=== PATIENT | female | born 1945 | race Caucasian/White ===

== ENCOUNTER 2019-10-19 07:12 | Day surgery (SDC) | payer MEDICARE, OTHER ==
[~2019-10-19] VITALS: Ht 167.6 cm; Wt 65.1 kg
[2019-10-19] MEDS ORDERED: albumin 25% 100mL bottle x 1 IV PRN (07:40)
[2019-10-19] MEDS ORDERED: normal saline 1000ml 1,000 ML IV PRN (07:45)
[2019-10-19 07:53] VITALS: BP 143/71
[2019-10-19] MEDS ORDERED: LACT1CAP65 PO (08:06)
[2019-10-19] MEDS ORDERED: PROC-8 PO (08:06)
[2019-10-19] MEDS ORDERED: OMEP40CA13 PO (08:06)
[2019-10-19] MEDS ORDERED: LETR2.5T23 PO (08:06)
[2019-10-19] MEDS ORDERED: CA C1TAB70 PO (08:06)
[2019-10-19 10:30] VITALS: BP 137/74
[2019-10-19 10:43] LABS: GLUCOSE,BODY FLUID 92 MG/DL; LDH,BODY FLUID 184 U/L
[2019-10-19 11:29] LABS: LYMPHOCYTES,BODY FLUID 54 %; MONOCYTES,BODY FLUID 22 %; NEUTROPHILS,BODY FLUID 24 %
[2019-10-19 11:33] LABS: BF RBC COUNT 2075 /CU MM; BF WBC COUNT 1075 /CU MM (0-1000); BFAPPEAR CLOUDY; BFCOLOR YELLOW; BFVOLUME 60 ML
[2019-10-19 11:34] LABS: BF MESOTHELIAL CELLS MODERATE
== END 2019-10-19 10:15 | disposition home or self-care (01) ==
LOC: SSTAY O 07:12
PROVIDERS: ATTEND Radiology Diagnostic Radiology
DX: R18.8 Other ascites (principal); C50.919 Malignant neoplasm of unspecified site of unspecified female breast; Z79.899 Other long term (current) drug therapy; Z88.2 Allergy status to sulfonamides
CPT/HCPCS: 49083; 82945; 83615; 84157; 89051; C1729; J7030

== ENCOUNTER 2019-11-16 07:22 | Day surgery (SDC) | payer MEDICARE, OTHER ==
[2019-11-16] VITALS (10 sets, daily range): BP systolic 120–164; BP diastolic 56–72
[~2019-11-16] VITALS: Ht 167.6 cm; Wt 57.8 kg
[~2019-11-16 07:22] MED LIST: CA C1TAB70 PO; LACT1CAP65 PO; LETR2.5T23 PO; OMEP40CA13 PO; PROC-8 PO
[2019-11-16] MEDS ORDERED: normal saline 1000ml 1,000 ML IV SCH (07:50)
[2019-11-16] MEDS ORDERED: heparin sodium, porcine/PF 100unit/ml 5ML syringe ICATH ONE (08:05)
[2019-11-16] MEDS ORDERED: LIDOcaine 1% (10mg/ml) 2ml vial SQ ONE (08:05)
[2019-11-16] MEDS ORDERED: midazolam 2 mg/2 ml injection IV PRN (08:05)
[2019-11-16] MEDS ORDERED: fentaNYL/PF 50MCG/1 ML 2ML syringe IV PRN (08:05)
[2019-11-16] MEDS ORDERED: OMEP20TA5 PO (08:09)
[2019-11-16] MEDS ORDERED: PSYL0.5210 PO (08:09)
[2019-11-16] MEDS ORDERED: HYDR4TAB45 PO (08:09)
[2019-11-16] MEDS ORDERED: ACET-1008 PO (08:09)
[2019-11-16] MEDS ORDERED: MAGN200T8 PO (08:09)
[2019-11-16] MEDS ORDERED: CHOL500061 PO (08:10)
[2019-11-16] MEDS ORDERED: CIPR-230 PO (08:53)
[2019-11-16] MEDS ORDERED: heparin sodium, porcine/PF 100unit/ml 5ML syringe ONE (10:29)
[2019-11-16] MEDS ORDERED: LIDOcaine 1%/PF 5ML 10 MG/ML VIAL ONE (10:29)
[2019-11-16] MEDS ORDERED: fentaNYL/PF 50MCG/1 ML 2ML syringe ONE (10:30)
[2019-11-16] MEDS ORDERED: midazolam 2 mg/2 ml injection ONE (10:30)
== END 2019-11-16 12:45 | disposition home or self-care (01) ==
LOC: SSTAY O 07:22
PROVIDERS: ATTEND Radiology Diagnostic Radiology
DX: C50.912 Malignant neoplasm of unspecified site of left female breast (principal); R18.8 Other ascites; Z90.49 Acquired absence of other specified parts of digestive tract; Z90.12 Acquired absence of left breast and nipple; Z90.721 Acquired absence of ovaries, unilateral; Z79.899 Other long term (current) drug therapy; Z88.2 Allergy status to sulfonamides
CPT/HCPCS: 36561; 49083; 76937; 77001; 99152; 99153; C1729; C1769; C1788; C1894; J1642; J2250; J3010